=== PATIENT | female | born 1970 | race Asian ===

== ENCOUNTER 2019-09-08 16:43 | Emergency (ER) | payer MEDICAID ==
[~2019-09-08] VITALS: Ht 157.5 cm; Wt 60.0 kg
[~2019-09-08 16:43] MED LIST: DOCU-275 PO; HYDR-3965 PO
[2019-09-08 18:21] LABS: BASOPHILS % (AUTO) 0.2 % (0.0-2.0); EOSINOPHILS % (AUTO) 1.6 % (1.0-6.0); HEMOGLOBIN 13.7 g/dL (12.0-16.0); LYMPHOCYTES # (AUTO) 1.5 K/uL (1.0-4.8); MEAN CORPUSCULAR HEMOGLOBIN 30.8 pg (26.0-34.0); MEAN CORPUSCULAR HGB CONC 32.7 G/dL (31.0-37.0); MEAN CORPUSCULAR VOLUME 94 fL (80-100); MONOCYTES # (AUTO) 0.2 K/uL (0.1-1.0); MONOCYTES % (AUTO) 4.3 % (2.0-9.0); NEUTROPHILS # (AUTO) 3.4 K/uL (1.8-7.7); NEUTROPHILS % (AUTO) 64.9 % (40.0-70.0); PLATELET COUNT (AUTO) 166 K/uL (150-450); RED BLOOD CELL COUNT(AUTO) 4.46 MIL/uL (4.00-5.20); RED CELL DISTRIBUTION WIDTH 13.7 % (11.5-14.5)
[2019-09-08] MEDS ORDERED: HYDR-4061 PO (18:24)
[2019-09-08 18:30] LABS: CARBON DIOXIDE 28 mmol/L (22-29); CHLORIDE 105 mmol/L (98-107); POTASSIUM 3.8 mmol/L (3.5-5.1); SODIUM SERUM 143 mmol/L (136-145)
[2019-09-08] MEDS ORDERED: MORPHINE SULFATE 2 MG/ML SYRINGE IVP ONE (18:30)
[2019-09-08 18:31] LABS: ANION GAP 10 mmol/L (8-16); CALCIUM, TOTAL 9.6 mg/dL (8.8-10.5); CREATININE 0.74 mg/dL (0.60-1.30); GLOMERULAR FILTR. RATE CALC > 60 mL/min (>60); GLUCOSE,RANDOM 98 mg/dL (70-110); UREA NITROGEN, BLOOD 7 mg/dL (7-18)
[2019-09-08 18:36] LABS: ALANINE AMINOTRANSFERASE 20 U/L (12-78); ALBUMIN 3.7 g/dL (3.4-5.0); ALKALINE PHOSPHATASE 105 U/L (46-116); ASPARTATE AMINOTRANSFERASE 13 U/L (15-37); BILIRUBIN,TOTAL 0.2 mg/dL (0.1-1.0); LIPASE 169 U/L (73-393); TOTAL PROTEIN, SERUM 8.1 g/dL (6.4-8.2)
[2019-09-08] MEDS ORDERED: SODIUM CHLORIDE 0.9% 100 ML ONE (19:58)
[2019-09-08] MEDS ORDERED: IOVERSOL 350 MG/ML 150 ML VIAL ONE (19:59)
[2019-09-08 22:12] VITALS: BP 118/79
== END 2019-09-08 22:21 | disposition home or self-care (01) ==
LOC: EMS 16:44
DX: G89.18 Other acute postprocedural pain (principal); R10.11 Right upper quadrant pain; F17.210 Nicotine dependence, cigarettes, uncomplicated; Z90.49 Acquired absence of other specified parts of digestive tract; Z88.6 Allergy status to analgesic agent
CPT/HCPCS: 36415; 74177; 80053; 83690; 85025; 96374; 99285; J2270; J7050; Q9967

== ENCOUNTER 2019-09-28 14:51 | Emergency (ER) | payer MEDICAID ==
[~2019-09-28] VITALS: Ht 165.1 cm; Wt 68.2 kg
[~2019-09-28 14:51] MED LIST changes: -HYDR-3965 PO; +HYDR-4061 PO
[2019-09-28] MEDS ORDERED: SODIUM CHLORIDE 0.9% 1,000 ML IV ONE (15:45)
[2019-09-28] MEDS ORDERED: FAMOTIDINE 10 MG/ML 2 ML VIAL IVP ONE (15:45)
[2019-09-28] MEDS ORDERED: PB/HYOSCY/ATR/SCOP/LIDO/MAALOX 55 ML BOTTLE PO ONE (15:45)
[2019-09-28] MEDS ORDERED: ONDANSETRON HCL 4 MG/2 ML VIAL IVP ONE ×2 (15:45→19:30)
[2019-09-28 15:55] LABS: BASOPHILS % (AUTO) 0.1 % (0.0-2.0); EOSINOPHILS % (AUTO) 1.7 % (1.0-6.0); HEMATOCRIT 41.1 % (36-46); HEMOGLOBIN 13.3 g/dL (12.0-16.0); LYMPHOCYTES # (AUTO) 2.1 K/uL (1.0-4.8); LYMPHOCYTES % (AUTO) 21.8 % (22.0-44.0); MEAN CORPUSCULAR HEMOGLOBIN 30.2 pg (26.0-34.0); MEAN CORPUSCULAR HGB CONC 32.3 G/dL (31.0-37.0); MEAN CORPUSCULAR VOLUME 93 fL (80-100); MONOCYTES # (AUTO) 0.3 K/uL (0.1-1.0); MONOCYTES % (AUTO) 3.7 % (2.0-9.0); NEUTROPHILS # (AUTO) 6.9 K/uL (1.8-7.7); NEUTROPHILS % (AUTO) 72.7 % (40.0-70.0); PLATELET COUNT (AUTO) 208 K/uL (150-450); RED BLOOD CELL COUNT(AUTO) 4.41 MIL/uL (4.00-5.20); RED CELL DISTRIBUTION WIDTH 13.5 % (11.5-14.5)
[2019-09-28 16:04] LABS: ANION GAP 9 mmol/L (8-16); CALCIUM, TOTAL 9.3 mg/dL (8.8-10.5); CARBON DIOXIDE 28 mmol/L (22-29); CHLORIDE 105 mmol/L (98-107); CREATININE 0.63 mg/dL (0.60-1.30); GLOMERULAR FILTR. RATE CALC > 60 mL/min (>60); GLUCOSE,RANDOM 100 mg/dL (70-110); POTASSIUM 3.5 mmol/L (3.5-5.1); SODIUM SERUM 142 mmol/L (136-145); UREA NITROGEN, BLOOD 17 mg/dL (7-18)
[2019-09-28 16:18] LABS: ALANINE AMINOTRANSFERASE 15 U/L (12-78); ALBUMIN 3.7 g/dL (3.4-5.0); ALKALINE PHOSPHATASE 102 U/L (46-116); ASPARTATE AMINOTRANSFERASE 11 U/L (15-37); BILIRUBIN,TOTAL 0.4 mg/dL (0.1-1.0); HCG,QUANTITATIVE 3 mIU/mL (0-6); LIPASE 90 U/L (73-393); TOTAL PROTEIN, SERUM 8.1 g/dL (6.4-8.2)
[2019-09-28] MEDS ORDERED: SODIUM CHLORIDE 0.9% 100 ML ONE (17:32)
[2019-09-28] MEDS ORDERED: IOVERSOL 320 MG/ML 100 ML VIAL ONE (17:32)
[2019-09-28 17:34] LABS: APPEARANCE,URINE CLEAR (CLEAR); BILIRUBIN,URINE NEGATIVE (NEGATIVE); GLUCOSE, URINE (UA) NEGATIVE (NEGATIVE); KETONES,URINE NEGATIVE (NEGATIVE); LEUKOCYTE ESTERASE ,URINE SMALL (NEGATIVE); NITRATE,URINE NEGATIVE (NEGATIVE); OCCULT BLOOD,URINE NEGATIVE (NEGATIVE); PH,URINE 6.5 (5.0-8.0); PROTEIN,URINE NEGATIVE (NEGATIVE)
[2019-09-28 17:57] LABS: BACTERIA,URINE Few /HPF (None Seen); RBC,URINE 0-2 /HPF (0-2)
[2019-09-28 17:58] LABS: MUCUS,URINE Many LPF (None Seen); SQUAMOUS EPITHELIAL CELL,UR Few /LPF (None Seen)
[2019-09-28] MEDS ORDERED: HYDROCODONE/ACETAMINOPHEN 5-325 MG TABLET PO ONE (19:30)
[2019-09-28 20:45] VITALS: BP 119/79
== END 2019-09-28 21:23 | disposition home or self-care (01) ==
LOC: EMS 14:56
DX: K29.00 Acute gastritis without bleeding (principal); G89.29 Other chronic pain; F17.210 Nicotine dependence, cigarettes, uncomplicated; R11.10 Vomiting, unspecified; Z90.49 Acquired absence of other specified parts of digestive tract; Z88.6 Allergy status to analgesic agent
CPT/HCPCS: 36415; 71045; 74177; 80053; 81001; 83690; 84484; 84702; 85025; 85610; 93005; 96361; 96374; 96375; 96376; 99285; J2405; J3490; J7030; J7050; Q9967

== ENCOUNTER 2019-10-23 00:31 | Inpatient (IN) | payer MEDICAID ==
[~2019-10-23] VITALS: Ht 165.1 cm; Wt 68.2 kg
[2019-10-23] MEDS ORDERED: HYDROCODONE/ACETAMINOPHEN 5-325 MG TABLET PO ONE (01:45)
[2019-10-23 02:01] LABS: BASOPHILS % (AUTO) 0.4 % (0.0-2.0); EOSINOPHILS % (AUTO) 0.3 % (1.0-6.0); HEMATOCRIT 38.9 % (36-46); HEMOGLOBIN 12.2 g/dL (12.0-16.0); LYMPHOCYTES # (AUTO) 1.2 K/uL (1.0-4.8); LYMPHOCYTES % (AUTO) 10.4 % (22.0-44.0); MEAN CORPUSCULAR HEMOGLOBIN 29.4 pg (26.0-34.0); MEAN CORPUSCULAR HGB CONC 31.5 G/dL (31.0-37.0); MEAN CORPUSCULAR VOLUME 93 fL (80-100); MONOCYTES # (AUTO) 0.3 K/uL (0.1-1.0); MONOCYTES % (AUTO) 2.7 % (2.0-9.0); PLATELET COUNT (AUTO) 152 K/uL (150-450); RED BLOOD CELL COUNT(AUTO) 4.17 MIL/uL (4.00-5.20); RED CELL DISTRIBUTION WIDTH 13.5 % (11.5-14.5)
[2019-10-23 02:02] LABS: NEUTROPHILS % (AUTO) 86.2 % (40.0-70.0)
[2019-10-23 02:04] LABS: APPEARANCE,URINE CLEAR (CLEAR); BILIRUBIN,URINE NEGATIVE (NEGATIVE); GLUCOSE, URINE (UA) NEGATIVE (NEGATIVE); KETONES,URINE 40 mg/dL (NEGATIVE); LEUKOCYTE ESTERASE ,URINE NEGATIVE (NEGATIVE); NITRATE,URINE NEGATIVE (NEGATIVE); OCCULT BLOOD,URINE NEGATIVE (NEGATIVE); PH,URINE 6.5 (5.0-8.0); PROTEIN,URINE TRACE (NEGATIVE)
[2019-10-23] MEDS ORDERED: IOVERSOL 350 MG/ML 100 ML VIAL ONE ×2 (02:12→02:14)
[2019-10-23] MEDS ORDERED: SODIUM CHLORIDE 0.9% 100 ML ONE (02:12)
[2019-10-23 02:25] LABS: ANION GAP 12 mmol/L (8-16); CALCIUM, TOTAL 9.1 mg/dL (8.8-10.5); CARBON DIOXIDE 27 mmol/L (22-29); CHLORIDE 105 mmol/L (98-107); CREATININE 0.76 mg/dL (0.60-1.30); GLOMERULAR FILTR. RATE CALC > 60 mL/min (>60); GLUCOSE,RANDOM 128 mg/dL (70-110); POTASSIUM 3.9 mmol/L (3.5-5.1); SODIUM SERUM 144 mmol/L (136-145); UREA NITROGEN, BLOOD 13 mg/dL (7-18)
[2019-10-23] MEDS ORDERED: MORPHINE SULFATE 4 MG/ML SYRINGE IVP ONE (02:30)
[2019-10-23 02:36] LABS: ALANINE AMINOTRANSFERASE 12 U/L (12-78); ALBUMIN 3.8 g/dL (3.4-5.0); ALKALINE PHOSPHATASE 93 U/L (46-116); ASPARTATE AMINOTRANSFERASE 10 U/L (15-37); BILIRUBIN,TOTAL 0.4 mg/dL (0.1-1.0); HCG,QUANTITATIVE 2 mIU/mL (0-6); LIPASE 73 U/L (73-393); TOTAL PROTEIN, SERUM 7.4 g/dL (6.4-8.2)
[2019-10-23 02:44] LABS: B-TYPE NATRIURETIC PEPTIDE 68 pg/mL (0-100)
[2019-10-23] MEDS ORDERED: HYDROmorphone 2 MG/ML SYRINGE IVP ONE ×4 (04:00→12:00)
[2019-10-23 04:28] LABS: PROTHROMBIN TIME 10.1 SEC (9.4-11.6)
[2019-10-23] MEDS ORDERED: PIPERACILLIN/TAZO 3.375 GM/D5W 50 ML IV ONE (04:30)
[2019-10-23] MEDS ORDERED: SODIUM CHLORIDE 0.9% 1,000 ML IV ONE (04:30)
[2019-10-23] MEDS ORDERED: ONDANSETRON HCL 4 MG/2 ML VIAL IVP PRN ×2 (04:30→08:00)
[2019-10-23] MEDS ORDERED: 0.9% SODIUM CHLORIDE 10 ML SYRINGE IVP PRN ×2 (04:30→08:00)
[2019-10-23] MEDS ORDERED: ACETAMINOPHEN 325 MG TABLET PO PRN (04:30)
[2019-10-23] MEDS: MORPHINE SULFATE 4 MG/ML SYRINGE IVP PRN ×2 (09:07→14:53)
[2019-10-23 09:15] VITALS: BP 124/77
[2019-10-23] MEDS ORDERED: BUPIVACAINE HCL/PF 0.5% 30 ML VIAL ONE (10:53)
[2019-10-23] MEDS ORDERED: LIDOCAINE 2%/EPI 1:200,000/PF 20 ML VIAL ONE (10:53)
[2019-10-23] MEDS ORDERED: RINGERS SOLUTION,LACTATED 1,000 ML IV ONE ×2 (10:54→11:02)
[2019-10-23] MEDS ORDERED: SODIUM CHLORIDE 0.9% 1,000 ML ONE (10:54)
[2019-10-23] MEDS ORDERED: PROPOFOL 1% 20 ML VIAL IVP ONE (12:00)
[2019-10-23] MEDS ORDERED: ONDANSETRON HCL 4 MG/2 ML VIAL IVP ONE (12:00)
[2019-10-23] MEDS ORDERED: ROCURONIUM BROMIDE 10 MG/ML 5 ML VIAL IVP ONE (12:00)
[2019-10-23] MEDS ORDERED: LIDOCAINE/PF 2% 5 ML VIAL INJ ONE (12:00)
[2019-10-23] MEDS ORDERED: DEXAMETHASONE SOD PHOS 4 MG/ML VIAL IVP ONE (12:00)
[2019-10-23] MEDS ORDERED: ACETAMINOPHEN 650 MG RECTAL SUPPOSITORY PR PRN (12:00)
[2019-10-23] MEDS ORDERED: PHENYLEPHRINE HCL 10 MG/ML VIAL IVP ONE (12:00)
[2019-10-23] MEDS ORDERED: SUCCINYLCHOLINE CHLORIDE 20 MG/ML 10 ML VIAL IVP ONE (12:00)
[2019-10-23] MEDS ORDERED: MIDAZOLAM HCL 2 MG/2 ML VIAL IVP ONE (12:00)
[2019-10-23] MEDS ORDERED: FentaNYL CITRATE-PF 250 MCG/5 ML VIAL IVP ONE (12:00)
[2019-10-23] MEDS: HYDROmorphone 2 MG/ML SYRINGE IVP PRN ×2 (13:15→13:27)
[2019-10-23] MEDS ORDERED: MEPERIDINE-PF 25 MG/ML VIAL IVP PRN (13:15)
[2019-10-23] MEDS ORDERED: FentaNYL CITRATE-PF 100 MCG/2 ML VIAL IVP PRN (13:15)
[2019-10-23] MEDS ORDERED: HYDROmorphone 2 MG/ML SYRINGE ONE (13:15)
[2019-10-23 14:18] VITALS: BP 123/79
[2019-10-23] MEDS: PANTOPRAZOLE SODIUM 40 MG/VIAL IVP SCH ×2 (14:52→20:47)
[2019-10-23] MEDS: PIPERACILLIN/TAZO 3.375 GM/D5W 50 ML IV SCH ×2 (15:36→23:25)
[2019-10-23] MEDS: SODIUM CHLORIDE 0.9% 1,000 ML IV SCH (16:29)
[2019-10-23 16:39] VITALS: BP 114/74
[2019-10-23 20:34] VITALS: BP 134/70
[2019-10-23 23:35] VITALS: BP 140/75
[2019-10-24] MEDS: MORPHINE SULFATE 2 MG/ML SYRINGE IVP PRN ×6 (01:39→22:11)
[2019-10-24 04:37] VITALS: BP 101/58
[2019-10-24] MEDS: PIPERACILLIN/TAZO 3.375 GM/D5W 50 ML IV SCH ×4 (04:52→22:11)
[2019-10-24] MEDS: OXYGEN THERAPY IH SCH (08:00)
[2019-10-24 08:33] LABS: BASOPHILS % (AUTO) 0.1 % (0.0-2.0); EOSINOPHILS % (AUTO) 0 % (1.0-6.0); HEMATOCRIT 31.4 % (36-46); HEMOGLOBIN 10.4 g/dL (12.0-16.0); LYMPHOCYTES # (AUTO) 1.5 K/uL (1.0-4.8); LYMPHOCYTES % (AUTO) 13.6 % (22.0-44.0); MEAN CORPUSCULAR HGB CONC 33.1 G/dL (31.0-37.0); MEAN CORPUSCULAR VOLUME 94 fL (80-100); MONOCYTES # (AUTO) 0.5 K/uL (0.1-1.0); MONOCYTES % (AUTO) 4.1 % (2.0-9.0); NEUTROPHILS % (AUTO) 82.2 % (40.0-70.0); RED BLOOD CELL COUNT(AUTO) 3.35 MIL/uL (4.00-5.20); RED CELL DISTRIBUTION WIDTH 13.8 % (11.5-14.5)
[2019-10-24] MEDS: PANTOPRAZOLE SODIUM 40 MG/VIAL IVP SCH ×2 (08:35→20:15)
[2019-10-24 08:38] VITALS: BP 127/74
[2019-10-24 08:43] LABS: ALANINE AMINOTRANSFERASE 15 U/L (12-78); ALBUMIN 2.4 g/dL (3.4-5.0); ALKALINE PHOSPHATASE 56 U/L (46-116); ANION GAP 12 mmol/L (8-16); ASPARTATE AMINOTRANSFERASE 16 U/L (15-37); BILIRUBIN,TOTAL 0.4 mg/dL (0.1-1.0); CALCIUM, TOTAL 8.3 mg/dL (8.8-10.5); CARBON DIOXIDE 24 mmol/L (22-29); CHLORIDE 109 mmol/L (98-107); CREATININE 0.52 mg/dL (0.60-1.30); GLOMERULAR FILTR. RATE CALC > 60 mL/min (>60); GLUCOSE,RANDOM 93 mg/dL (70-110); POTASSIUM 3.7 mmol/L (3.5-5.1); SODIUM SERUM 145 mmol/L (136-145); TOTAL PROTEIN, SERUM 6.2 g/dL (6.4-8.2); UREA NITROGEN, BLOOD 15 mg/dL (7-18)
[2019-10-24] MEDS: SODIUM CHLORIDE 0.9% 1,000 ML IV SCH (10:58)
[2019-10-24 11:34] VITALS: BP 124/76
[2019-10-24 12:18] LABS: PLATELET COUNT (AUTO) 160 K/uL (150-450)
[2019-10-24 15:26] VITALS: BP 110/79
[2019-10-24 19:40] VITALS: BP 123/80
[2019-10-24] MEDS: ONDANSETRON HCL 4 MG/2 ML VIAL IVP PRN (22:12)
[2019-10-24 23:00] VITALS: BP 112/76
[2019-10-25] MEDS: SODIUM CHLORIDE 0.9% 1,000 ML IV SCH ×2 (00:59→14:18)
[2019-10-25] MEDS: MORPHINE SULFATE 2 MG/ML SYRINGE IVP PRN ×7 (01:04→20:58)
[2019-10-25] MEDS: PIPERACILLIN/TAZO 3.375 GM/D5W 50 ML IV SCH ×4 (03:57→22:09)
[2019-10-25 04:10] VITALS: BP 123/76
[2019-10-25] MEDS: OXYGEN THERAPY IH SCH ×3 (07:30→20:00)
[2019-10-25 07:52] VITALS: BP 114/74
[2019-10-25] MEDS: PANTOPRAZOLE SODIUM 40 MG/VIAL IVP SCH ×2 (08:06→20:59)
[2019-10-25 11:55] VITALS: BP 119/68
[2019-10-25 17:00] VITALS: BP 132/73
[2019-10-25 20:55] VITALS: BP 129/72
[2019-10-25] MEDS: AMOXICILLIN TRIHYDRATE 500 MG CAPSULE PO SCH (20:58)
[2019-10-25] MEDS: CLARITHROMYCIN 500 MG TABLET PO SCH (20:58)
[2019-10-25] MEDS: ONDANSETRON HCL 4 MG/2 ML VIAL IVP PRN (22:13)
[2019-10-26] VITALS (7 sets, daily range): BP systolic 123–146; BP diastolic 68–89
[2019-10-26] MEDS: MORPHINE SULFATE 2 MG/ML SYRINGE IVP PRN ×7 (01:17→23:20)
[2019-10-26] MEDS: PIPERACILLIN/TAZO 3.375 GM/D5W 50 ML IV SCH ×4 (04:15→23:20)
[2019-10-26] MEDS: SODIUM CHLORIDE 0.9% 1,000 ML IV SCH (06:31)
[2019-10-26] MEDS: PANTOPRAZOLE SODIUM 40 MG/VIAL IVP SCH ×2 (08:41→20:09)
[2019-10-26] MEDS: OXYGEN THERAPY IH SCH ×2 (08:48→20:13)
[2019-10-26] MEDS: AMOXICILLIN TRIHYDRATE 500 MG CAPSULE PO SCH ×3 (08:48→20:43)
[2019-10-26] MEDS: CLARITHROMYCIN 500 MG TABLET PO SCH ×3 (08:48→20:43)
[2019-10-26] MEDS ORDERED: SODIUM CHLORIDE 0.9% 100 ML ONE (12:21)
[2019-10-26] MEDS ORDERED: IOVERSOL 320 MG/ML 100 ML VIAL ONE (12:21)
[2019-10-27] MEDS: MORPHINE SULFATE 2 MG/ML SYRINGE IVP PRN ×8 (01:17→23:05)
[2019-10-27] MEDS: PIPERACILLIN/TAZO 3.375 GM/D5W 50 ML IV SCH ×4 (04:06→21:18)
[2019-10-27 04:18] VITALS: BP 129/77
[2019-10-27 07:51] VITALS: BP 122/73
[2019-10-27] MEDS ORDERED: DIATRIZOATE MEGLU/SOD 660/100 MG/ML 120 ML BOTTLE ONE (11:03)
[2019-10-27 11:10] VITALS: BP 133/90
[2019-10-27] MEDS: PANTOPRAZOLE SODIUM 40 MG/VIAL IVP SCH ×2 (11:37→22:41)
[2019-10-27] MEDS: CLARITHROMYCIN 500 MG TABLET PO SCH ×2 (13:29→21:18)
[2019-10-27] MEDS: AMOXICILLIN TRIHYDRATE 500 MG CAPSULE PO SCH ×2 (13:29→21:18)
[2019-10-27 15:00] VITALS: BP 132/72
[2019-10-27 20:42] VITALS: BP 140/71
[2019-10-27] MEDS: ONDANSETRON HCL 4 MG/2 ML VIAL IVP PRN (22:43)
[2019-10-27 23:06] VITALS: BP 132/70
[2019-10-28] MEDS: MORPHINE SULFATE 2 MG/ML SYRINGE IVP PRN ×8 (01:41→23:07)
[2019-10-28 01:45] VITALS: BP 117/68
[2019-10-28] MEDS: SODIUM CHLORIDE 0.9% 1,000 ML IV SCH ×2 (03:42→20:42)
[2019-10-28] MEDS: PIPERACILLIN/TAZO 3.375 GM/D5W 50 ML IV SCH ×4 (03:42→21:57)
[2019-10-28 03:43] VITALS: BP 138/78
[2019-10-28] MEDS: CLARITHROMYCIN 500 MG TABLET PO SCH ×2 (08:00→20:30)
[2019-10-28] MEDS: PANTOPRAZOLE SODIUM 40 MG/VIAL IVP SCH ×2 (08:00→20:29)
[2019-10-28] MEDS: AMOXICILLIN TRIHYDRATE 500 MG CAPSULE PO SCH ×2 (08:00→20:30)
[2019-10-28 08:47] VITALS: BP 128/72
[2019-10-28 11:27] VITALS: BP 108/68
[2019-10-28 16:03] VITALS: BP 115/68
[2019-10-28] MEDS: OXYGEN THERAPY IH SCH (20:00)
[2019-10-28 20:19] VITALS: BP 112/64
[2019-10-29 00:30] VITALS: BP 96/69
[2019-10-29] MEDS: MORPHINE SULFATE 2 MG/ML SYRINGE IVP PRN ×3 (02:43→12:37)
[2019-10-29] MEDS: PIPERACILLIN/TAZO 3.375 GM/D5W 50 ML IV SCH ×2 (03:45→10:12)
[2019-10-29 05:21] VITALS: BP 110/65
[2019-10-29] MEDS: OXYGEN THERAPY IH SCH (08:00)
[2019-10-29 08:22] VITALS: BP 94/58
[2019-10-29] MEDS: AMOXICILLIN TRIHYDRATE 500 MG CAPSULE PO SCH (08:29)
[2019-10-29] MEDS: CLARITHROMYCIN 500 MG TABLET PO SCH (08:29)
[2019-10-29] MEDS: PANTOPRAZOLE SODIUM 40 MG/VIAL IVP SCH (08:30)
[2019-10-29] MEDS ORDERED: HYDROCODONE/ACETAMINOPHEN 5-325 MG TABLET PO PRN (09:30)
[2019-10-29] MEDS ORDERED: DOCU100C33 PO (10:31)
[2019-10-29] MEDS ORDERED: AMOX500C2 PO (10:31)
[2019-10-29] MEDS ORDERED: CLAR-44 PO (10:31)
[2019-10-29] MEDS ORDERED: PANT-31 PO (10:31)
[2019-10-29 11:13] VITALS: BP 104/54
[2019-10-29] MEDS ORDERED: HYDR-3290 PO (17:45)
[2019-10-30] MEDS ORDERED: HYDR-4069 PO (11:43)
== END 2019-10-29 14:00 | disposition home or self-care (01) | DRG 222 ==
LOC: EMS 00:32 → 6S 06:26
PROVIDERS: ADMIT Internal Medicine; ATTEND Internal Medicine
PROC: 0DU707Z Supplement Stomach, Pylorus with Autologous Tissue Substitute, Open Approach (ICD-10-PCS; principal; 2019-10-23 11:00)
DX: K25.5 Chronic or unspecified gastric ulcer with perforation (principal); E87.2 Acidosis; D64.9 Anemia, unspecified; Z87.891 Personal history of nicotine dependence; Z90.49 Acquired absence of other specified parts of digestive tract; N83.209 Unspecified ovarian cyst, unspecified side; Z79.82 Long term (current) use of aspirin; Z88.6 Allergy status to analgesic agent; M54.9 Dorsalgia, unspecified; Z20.828 Contact with and (suspected) exposure to other viral communicable diseases
CPT/HCPCS: 74022; 74177; 74247; 83735; 86850; 86900; 86901; 87070; 87081; 87205; 88305; 88313; 93005; 99291; C9113; J0330; J0690; J1100; J1170; J2250; J2270; J2370; J2405; J2543; J2704; J3010; J3490; J7030; J7050; J7120

== ENCOUNTER 2020-12-31 23:48 | Emergency (ER) | payer MEDICAID ==
[~2020-12-31] VITALS: Ht 165.1 cm; Wt 68.2 kg
[~2020-12-31 23:48] MED LIST changes: +AMOX500C2 PO; +CLAR-44 PO; +DOCU-270 PO; -DOCU-275 PO; +DOCU100C33 PO; +HYDR-4069 PO; +PANT-31 PO
[2021-01-01] MEDS ORDERED: PERTUSS(ACELL),DIPH,TET VAC/PF 0.5 ML SYRINGE IM. ONE (01:15)
[2021-01-01] MEDS ORDERED: MORPHINE SULFATE 4 MG/ML SYRINGE IM ONE (01:15)
[2021-01-01 02:32] LABS: BASOPHILS % (AUTO) 0.4 % (0.0-2.0); EOSINOPHILS % (AUTO) 1.7 % (1.0-6.0); HEMATOCRIT 37.5 % (36-46); HEMOGLOBIN 12.6 g/dL (12.0-16.0); LYMPHOCYTES % (AUTO) 25.9 % (22.0-44.0); MEAN CORPUSCULAR HEMOGLOBIN 31.9 pg (26.0-34.0); MEAN CORPUSCULAR HGB CONC 33.5 G/dL (31.0-37.0); MEAN CORPUSCULAR VOLUME 95 fL (80-100); MONOCYTES # (AUTO) 0.3 K/uL (0.1-1.0); MONOCYTES % (AUTO) 3.3 % (2.0-9.0); NEUTROPHILS # (AUTO) 5.3 K/uL (1.8-7.7); NEUTROPHILS % (AUTO) 68.7 % (40.0-70.0); PLATELET COUNT (AUTO) 264 K/uL (150-450); RED BLOOD CELL COUNT(AUTO) 3.94 MIL/uL (4.00-5.20); RED CELL DISTRIBUTION WIDTH 13.6 % (11.5-14.5)
[2021-01-01 02:38] LABS: ANION GAP 6 mmol/L (8-16); CARBON DIOXIDE 30 mmol/L (22-29); CHLORIDE 106 mmol/L (98-107); CREATININE 0.58 mg/dL (0.60-1.30); GLOMERULAR FILTR. RATE CALC > 60 mL/min (>60); GLUCOSE,RANDOM 122 mg/dL (70-110); POTASSIUM 5.1 mmol/L (3.5-5.1); SODIUM SERUM 142 mmol/L (136-145); UREA NITROGEN, BLOOD 12 mg/dL (7-18)
[2021-01-01 02:44] LABS: ALANINE AMINOTRANSFERASE 25 U/L (12-78); ALBUMIN 3.6 g/dL (3.4-5.0); ALKALINE PHOSPHATASE 92 U/L (46-116); ASPARTATE AMINOTRANSFERASE 17 U/L (15-37); BILIRUBIN,TOTAL 0.2 mg/dL (0.1-1.0); CREATINE KINASE, TOTAL ONLY 70 U/L (26-192); TOTAL PROTEIN, SERUM 7.5 g/dL (6.4-8.2)
[2021-01-01] MEDS ORDERED: HYDROCODONE/ACETAMINOPHEN 5-325 MG TABLET PO ONE (04:00)
[2021-01-01 04:32] VITALS: BP 135/79
== END 2021-01-01 04:40 | disposition home or self-care (01) ==
LOC: EMS 23:55
DX: S01.01XA Laceration without foreign body of scalp, initial encounter (principal); Z88.6 Allergy status to analgesic agent; Z79.899 Other long term (current) drug therapy; Z87.891 Personal history of nicotine dependence; Y04.0XXA Assault by unarmed brawl or fight, initial encounter; Y93.89 Activity, other specified; Y92.89 Other specified places as the place of occurrence of the external cause; Y99.8 Other external cause status
CPT/HCPCS: 12002; 36415; 70450; 71045; 72070; 72110; 72125; 73080; 80053; 82550; 85025; 90471; 90715; 96372; 99285; G0480; J2270

== ENCOUNTER 2021-01-18 23:07 | Emergency (ER) | payer MEDICAID ==
[~2021-01-18] VITALS: Ht 165.1 cm; Wt 61.4 kg
[2021-01-19 02:00] VITALS: BP 129/70
== END 2021-01-19 03:41 | disposition home or self-care (01) ==
LOC: EMS 23:11
DX: S50.01XA Contusion of right elbow, initial encounter (principal); S39.012A Strain of muscle, fascia and tendon of lower back, initial encounter; X50.0XXA Overexertion from strenuous movement or load, initial encounter; Y93.89 Activity, other specified; Y92.89 Other specified places as the place of occurrence of the external cause; Y99.8 Other external cause status
CPT/HCPCS: 99283

== ENCOUNTER 2021-02-27 01:13 | Emergency (ER) | payer MEDICAID ==
[~2021-02-27] VITALS: Ht 165.1 cm; Wt 61.4 kg
[2021-02-27 03:15] VITALS: BP 131/74
[2021-02-27] MEDS ORDERED: CYCLOBENZAPRINE HCL 10 MG TABLET PO ONE (04:00)
[2021-02-27] MEDS ORDERED: HYDROCODONE/ACETAMINOPHEN 5-325 MG TABLET PO ONE (04:00)
== END 2021-02-27 04:15 | disposition home or self-care (01) ==
LOC: EMS 01:14
DX: S39.012A Strain of muscle, fascia and tendon of lower back, initial encounter (principal); Z87.891 Personal history of nicotine dependence; X50.0XXA Overexertion from strenuous movement or load, initial encounter; Y93.89 Activity, other specified; Y92.89 Other specified places as the place of occurrence of the external cause; Y99.8 Other external cause status
CPT/HCPCS: 99283

== ENCOUNTER 2021-10-27 14:13 | Emergency (ER) | payer MEDICAID ==
[~2021-10-27] VITALS: Ht 165.1 cm; Wt 72.7 kg
[2021-10-27] MEDS ORDERED: HYDR-4723 PO (14:15)
[2021-10-27] MEDS ORDERED: OxyCODONE HCL/ACETAMINOPHEN 5-325 MG TABLET PO ONE (15:30)
[2021-10-27] MEDS ORDERED: DiphenhydrAMINE HCL 50 MG/ML VIAL IM ONE (15:30)
[2021-10-27] MEDS ORDERED: KETOROLAC TROMETHAMINE 60 MG/2 ML VIAL IM ONE (15:30)
[2021-10-27] MEDS ORDERED: PERCT PO (16:04)
[2021-10-27] MEDS ORDERED: CYCL5TAB PO (16:08)
[2021-10-27 16:50] VITALS: BP 118/65
== END 2021-10-27 16:52 | disposition home or self-care (01) ==
LOC: EMS 14:13
DX: G89.29 Other chronic pain (principal); M54.50 Low back pain, unspecified; Z88.6 Allergy status to analgesic agent; Z79.899 Other long term (current) drug therapy; Z87.891 Personal history of nicotine dependence
CPT/HCPCS: 96372; 99284; J1200; J1885